=== PATIENT | female | born 1955 | race Caucasian/White ===

== ENCOUNTER → 2017-03-23 | Outpatient (CLI) | payer OTHER | LOC: BRMIMAGING 13:14 | PROVIDERS: ATTEND Physician Assistant Surgical | DX: Z12.31 Encounter for screening mammogram for malignant neoplasm of breast (principal) ==

== ENCOUNTER → 2017-03-30 | Outpatient (CLI) | payer OTHER | LOC: BRMIMAGING 12:52 | PROVIDERS: ATTEND Physician Assistant Surgical | DX: R10.2 Pelvic and perineal pain (principal) | CPT/HCPCS: 76856-PO ==

== ENCOUNTER → 2018-07-13 | Outpatient (CLI) | payer MEDICAID, OTHER | LOC: BRMIMAGING 10:49 ==